=== PATIENT | male | born 1990 | race Hispanic/Latino ===

== ENCOUNTER 2017-05-01 11:48 | Emergency (ER) | payer BC ==
[2017-05-01 11:55] VITALS: BP 133/86
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
[2017-05-01] MEDS ORDERED: ULTRAM PO ONE (13:50)
[2017-05-01] MEDS ORDERED: ULTRAM ONE (13:50)
== END 2017-05-01 13:52 | disposition home or self-care (01) ==
LOC: ED 11:48
DX: S02.40EA Zygomatic fracture, right side, initial encounter for closed fracture (principal); R51 Headache; W22.8XXA Striking against or struck by other objects, initial encounter; Y93.89 Activity, other specified; Y92.89 Other specified places as the place of occurrence of the external cause; Y99.8 Other external cause status
CPT/HCPCS: 70486; 99283